=== PATIENT | female | born 1960 | race Caucasian/White ===

== ENCOUNTER 2018-12-13 07:43 | Emergency (ER) | payer BC ==
[~2018-12-13] VITALS: Ht 160 cm; Wt 75.2 kg
[~2018-12-13 07:43] MED LIST: LORA1TAB PO; NAPR-688 PO; PANT40TA3 PO
[2018-12-13 07:51] VITALS: Ht 160 cm; Wt 75.2 kg
[2018-12-13] MEDS ORDERED: LIDOCAINE/MYLANTA 40 ML BTL PO STA (08:23)
[2018-12-13] MEDS ORDERED: PANTOPRAZOLE (EC) 40 MG TAB PO ONE (08:30)
--- NOTE | 2018-12-13 11:30 | ERD ---
ER Documentation Chief Complaint Chief Complaint epigastric pain w/diarrhea and nausea x3 days HPI Patient is a 58-year-old female with hypertension who presents with abdominal pain. The patient has been epigastric abdominal pain over the past 3 days. She also feels pain in the right upper quadrant. She reports constipation. She has nausea but no vomiting. Fevers. She tried naproxen for pain. Upon review of old medical records this is the patient's first visit to the emergency department. Review of the emergency department information exchange system shows visits to 3 separate emergency departments for a total of 6 visits over the past 1 year. ROS All systems reviewed and are negative except as per history of present illness. Medications Home Meds Active Scripts Pantoprazole* (Protonix*) 40 Mg Tablet.dr, 40 MG PO DAILY, #30 TAB Prov:DEJAH GONCALVES MD 12/13/18 Reported Medications Lorazepam* (Lorazepam*) 1 Mg Tablet, 1 MG PO HS PRN for ANXIETY, #30 TAB 12/13/18 Naproxen* (Naproxen*) 500 Mg Tablet, 500 MG PO NEEDED, TAB 12/13/18 Allergies Allergies: Uncoded Allergies: ANTIBOTICS (Allergy, Unknown, 12/13/18) PMhx/Soc History of Surgery: No Anesthesia Reaction: No Hx Neurological Disorder: No Hx Respiratory Disorders: No Hx Cardiac Disorders: Yes (HTN) Hx Psychiatric Problems: Yes (ANXIETY) Hx Miscellaneous Medical Probl: Yes (PRE-DM) Hx Alcohol Use: No Hx Substance Use: No Hx Tobacco Use: No Smoking Status: Never smoker FmHx Family History: No diabetes Physical Exam Vitals Vital Signs Date Temp Pulse Resp B/P (MAP) Pulse Ox O2 O2 Flow FiO2 Time Delivery Rate 12/13/18 97.5 64 18 122/72 98 07:51 (89) Physical Exam Const: No acute distress Head: Atraumatic Eyes: Normal Conjunctiva ENT: Normal External Ears, Nose and Mouth. Neck: Full range of motion. No meningismus. Resp: Clear to auscultation bilaterally Cardio: Regular rate and rhythm, no murmurs Abd: Soft, epigastric tenderness to palpation without rebound or guarding Skin: No petechiae or rashes Back: No midline or flank tenderness Ext: No cyanosis, or edema Neur: Awake and alert Psych: Normal Mood and Affect Result Diagram: 12/13/18 0900 12/13/18 0900 Results 24 hrs Laboratory Tests Test 12/13/18 08:30 12/13/18 09:00 Urine Color YELLOW Urine Clarity CLEAR Urine pH 8.0 Urine Specific [place] 1.010 Urine Ketones NEGATIVE mg/dL Urine Nitrite NEGATIVE mg/dL Urine Bilirubin NEGATIVE mg/dL Urine Urobilinogen NEGATIVE mg/dL Urine Leukocyte Esterase NEGATIVE Valeri/ul Urine Hemoglobin NEGATIVE mg/dL Urine Glucose NEGATIVE mg/dL Urine Total Protein NEGATIVE mg/dl White Blood Count 6.3 10^3/ul Red Blood Count 4.28 10^6/ul Hemoglobin 12.6 g/dl Hematocrit 38.0 % Mean Corpuscular Volume 88.8 fl Mean Corpuscular Hemoglobin 29.4 pg Mean Corpuscular Hemoglobin Concent 33.2 g/dl Red Cell Distribution Width 12.5 % Platelet Count 250 10^3/UL Mean Platelet Volume 12.0 fl Immature Granulocytes % 0.300 % Neutrophils % 42.6 % Lymphocytes % 47.5 % Monocytes % 7.3 % Eosinophils % 1.8 % Basophils % 0.5 % Nucleated Red Blood Cells % 0.0 /100WBC Immature Granulocytes # 0.020 10^3/ul Neutrophils # 2.7 10^3/ul Lymphocytes # 3.0 10^3/ul Monocytes # 0.5 10^3/ul Eosinophils # 0.1 10^3/ul Basophils # 0.0 10^3/ul Nucleated Red Blood Cells # 0.0 10^3/ul Sodium Level 145 mmol/L Potassium Level 4.5 mmol/L Chloride Level 108 mmol/L Carbon Dioxide Level 29 mmol/L Anion Gap 8 Blood Urea Nitrogen 12 mg/dl Creatinine 0.70 mg/dl Est Glomerular Filtrat Rate mL/min > 60 mL/min Glucose Level 96 mg/dl Calcium Level 9.3 mg/dl Total Bilirubin 0.4 mg/dl Direct Bilirubin 0.00 mg/dl Indirect Bilirubin 0.4 mg/dl Aspartate Amino Transf (AST/SGOT) 45 IU/L Alanine Aminotransferase (ALT/SGPT) 22 IU/L Alkaline Phosphatase 109 IU/L Total Protein 6.9 g/dl Albumin 3.9 g/dl Globulin 3.00 g/dl Albumin/Globulin Ratio 1.30 Lipase 144 U/L Current Medications Medications Dose Sig/Angel Start Time Status Last (Trade) Ordered Route PRN Stop Time Admin Dose Reason Admin 40 ml ONCE STAT 12/13/18 DC 12/13/18 Miscellaneous PO 08:23 08:42 Medication 12/13/18 08:25 (Gi Cocktail (2)) 40 mg ONCE ONCE 12/13/18 DC 12/13/18 Pantoprazole PO 08:30 08:41 (Protonix 12/13/18 08:31 Tab) Procedures/MDM Patient is a 58-year-old female presents with abdominal pain. She reports epigastric abdominal pain and has tenderness to palpation without rebound or guarding. The patient was found to have normal LFTs, normal lipase, normal white blood cell count. At this point I doubt appendicitis, cholecystitis, pancreatitis, or bowel obstruction. She did have her gallbladder removed in 2005. I believe outpatient management is appropriate but she will need close follow-up with her primary doctor within 24 to 48 hours for reevaluation. She can follow-up with her primary doctor or return to the ER symptoms worsen. The patient will be given a prescription for Protonix for symptomatic relief. Departure Diagnosis: Primary Impression: Epigastric pain Condition: Fair Patient Instructions: Epigastric Pain (Uncertain Cause) Referrals: Your doctor Additional Instructions: Llame al doctor MAANA y jimena daniel AFSHAN PARA DENTRO DE 1-2 SINGH.Dgale a la secretaria que nosotros le instruimos hacer esta afshan.Avise o llame si campbell condicin se empeora antes de la afshan. Regresa aqui si peor o no mejor. DEJAH GONCALVES MD Dec 13, 2018 11:30
[2018-12-13 11:52] VITALS: BP 116/74; PULSE 61; RESP 15
== END 2018-12-13 11:53 | disposition home or self-care (01) ==
LOC: E/R 07:43
DX: R10.13 Epigastric pain (principal); I10 Essential (primary) hypertension
CPT/HCPCS: 80053; 81003; 83690; 85025; Z7610; 36415; 99283

== ENCOUNTER 2018-12-20 19:57 | Emergency (ER) | payer SELFPAY ==
[~2018-12-20] VITALS: Ht 154.9 cm; Wt 73.4 kg
[2018-12-20 20:03] VITALS: BP 124/79; PULSE 83; RESP 20; Ht 154.9 cm; Wt 73.4 kg
== END 2018-12-20 21:05 | disposition left against medical advice (07) ==
LOC: E/R 19:57
DX: Z53.21 Procedure and treatment not carried out due to patient leaving prior to being seen by health care provider (principal)
CPT/HCPCS: 93005

== ENCOUNTER 2019-01-10 22:54 | Emergency (ER) | payer BC ==
[~2019-01-10] VITALS: Ht 152.4 cm; Wt 72.2 kg
[~2019-01-10 22:54] MED LIST changes: +IBUP-1542 PO; +LISI-471 PO
[2019-01-10 23:10] VITALS: Ht 152.4 cm; Wt 72.2 kg
[2019-01-11 02:30] VITALS: BP 104/62; PULSE 63; RESP 24
== END 2019-01-11 02:36 | disposition home or self-care (01) ==
LOC: E/R 22:54
DX: R51 Headache (principal); I10 Essential (primary) hypertension
CPT/HCPCS: 36415; 70450; 71045; 80048; 84484; 85025; 85610; 85730; 93005; Z7502

== ENCOUNTER 2019-01-20 22:13 | Emergency (ER) | payer BC, OTHER ==
[~2019-01-20] VITALS: Ht 152.4 cm; Wt 72.2 kg
[2019-01-20 22:21] VITALS: Ht 152.4 cm; Wt 72.2 kg
[2019-01-20] MEDS ORDERED: ACETAMINOPHEN 325 MG TAB PO STA (23:21)
[2019-01-20] MEDS ORDERED: SOD CHLORIDE 0.9% 1,000 ML IV STA (23:21)
[2019-01-21 00:49] VITALS: BP 112/61; PULSE 75; RESP 18
== END 2019-01-21 00:56 | disposition home or self-care (01) ==
LOC: FTE 22:13
DX: R51 Headache (principal); I10 Essential (primary) hypertension
CPT/HCPCS: 36415; 71045; 80048; 84484; 85025; 85610; 85730; 96360; 96361; J7030; Z7502; Z7610